=== PATIENT | female | born 1965 | race Caucasian/White ===

== ENCOUNTER 2018-09-15 12:42 | Outpatient (CLI) | payer OTHER ==
--- NOTE | 2018-09-15 14:38 | RAD ---
DOUBLE CONTRAST BARIUM SWALLOW: INDICATION: Dysphagia, esophageal disorder, 53-year-old female. FINDINGS: [facility] [employer] imaging of the chest reveals no significant abnormality. Utilizing liquid barium, effervescent crystals, and a 13.5 mm barium tablet, real-t9ime fluoroscopic imaging was performed. There is appropriate esophageal motility without evidence of a constricting l esion or a persistent mass. The contrast-opacified gastric lumen is grossly unremarkable. 12.5 mm b arium tablet freely passes the esophagus and into the stomach. During real-time evaluation, there is no evidence of significant gastroesophageal reflux. There is no hiatal hernia. IMPRESSION: Unremarkable double-contrast barium swallow exam. POS: [facility]
== END 2018-09-15 12:43 | disposition home or self-care (01) ==
LOC: RAD 12:42
PROVIDERS: ATTEND Family Medicine
DX: R13.10 Dysphagia, unspecified (principal); K22.9 Disease of esophagus, unspecified
CPT/HCPCS: 74220

== ENCOUNTER 2019-01-02 10:35 | Outpatient (CLI) | payer OTHER ==
--- NOTE | 2019-01-04 08:50 | RAD ---
Modified barium swallow HISTORY: Dysphagia. Feeding difficulties. FINDINGS: Exam was performed by speech pathology with multiple consistencies. Video review is availab le and demonstrates good bolus formation and retropulsion. Deep penetration was demonstrated. With the thinner consistencies on several occasions. No bryson aspiration. No significant residua. A 12 mm barium tablet was swallowed without apparent difficulty. The esophagus below the level of the hypopharynx was not evaluated. Please see separate detailed repo rt from speech pathology. Fluoroscopy time 31 seconds.
== END 2019-01-02 10:36 | disposition home or self-care (01) ==
PROVIDERS: ATTEND Otolaryngology Plastic Surgery within the Head & Neck
DX: R13.13 Dysphagia, pharyngeal phase (principal)
CPT/HCPCS: 74230

== ENCOUNTER 2021-01-04 07:47 | Inpatient (IN) | payer OTHER, SELFPAY ==
[2021-01-04 09:58] VITALS: BMI 24.9
[2021-01-04] MEDS ORDERED: HYDROcodone/Acetaminophen 5/325 mg Tablet PO PRN (10:08)
[2021-01-04] MEDS ORDERED: Senokot S 8.6-50 MG TAB PO PRN (10:08)
[2021-01-04] MEDS ORDERED: HYDROmorphone 0.5 MG/0.5 ML SYRINGE SLOW IVP PRN (10:10)
[2021-01-04] MEDS ORDERED: Sodium Chloride 0.9% 1,000 ML IV SCH (10:15)
[2021-01-04] MEDS ORDERED: Morphine 4 MG/ML VIAL SLOW IVP PRN (10:16)
[2021-01-04] MEDS ORDERED: Non-Formulary Item 1 EACH (Dextroamphetamine/Amphetamine [Adderall Xr 30 Mg Capsule] 30 M PO PRN (10:18)
[2021-01-04] MEDS: metroNIDAZOLE 500 MG in Premix Bag 1 BAG IVPB SCH ×2 (10:48→18:37)
[2021-01-04] MEDS: Sodium Chloride 0.9% 1,000 ML IV SCH ×2 (10:52→18:37)
[2021-01-04] MEDS: Acetaminophen 325 MG TAB PO PRN (12:03)
[2021-01-04 13:20] LABS: #Eosinphils 0.1 thou/uL (0.0-0.7); #Lymphocytes 0.8 thou/uL (1.20-3.40); %Basophils 0.5 % (0.0-1.0); %Eosinophils 0.6 % (0.0-10.0); %Monocytes 10.4 % (0.0-10.0); %Neutrophils 80.6 % (42.0-75.0); Hemoglobin 14.3 g/dL (12.0-16.0); Mean Corpuscular HGB CONC 32.4 g/dL (32.0-36.0); Mean Corpuscular Hemoglobin 29.7 pg (27.0-31.0); Mean Corpuscular Volume 91.7 fL (78.0-98.0); Mean Platelet Volume 8.1 fL (7.4-10.4); Platelet Count 172 thou/uL (130-400); RBC Distribution Width 12.2 % (11.5-14.5); Red Blood Cell (RBC) Count 4.83 mill/uL (4.20-5.40); White Blood Cell (WBC) Count 9.9 thou/uL (4.8-10.8)
[2021-01-04 13:40] LABS: Lactic Acid 1.4 mmol/L (0.5-2.2)
[2021-01-04 13:44] LABS: ALT (SGPT) 17 U/L (8-55); AST (SGOT) 17 U/L (5-34); Albumin 2.9 g/dL (3.5-5.0); Alkaline Phosphatase 62 U/L (40-110); Anion Gap 15 mmol/L (10-20); BUN (Urea Nitrogen) 7 mg/dL (9.8-20.1); Bilirubin, Total 0.4 mg/dL (0.2-1.2); Calc. Creatinine Clearance 102 mL/min (70-130); Calcium 8.3 mg/dL (7.8-10.44); Carbon Dioxide 16 mmol/L (22-29); Chloride 108 mmol/L (98-107); Globulin 2.6 g/dL (2.4-3.5); Glucose 100 mg/dL (70-105); Lipase 5 U/L (8-78); Potassium 3.5 mmol/L (3.5-5.1); Protein, Total 5.5 g/dL (6.0-8.3); Sodium 135 mmol/L (136-145)
[2021-01-04] MEDS: Morphine 4 MG/ML VIAL SLOW IVP PRN ×3 (13:45→21:57)
[2021-01-04] MEDS: Ondansetron PF 4 MG/2 ML Vial IVP PRN (18:45)
[2021-01-04] MEDS: Letrozole 2.5 MG TAB PO SCH (20:25)
[2021-01-04] MEDS ORDERED: Famotidine/PF 20 mg/2ml Vial SLOW IVP SCH (21:00)
[2021-01-05] MEDS: Morphine 4 MG/ML VIAL SLOW IVP PRN ×5 (02:19→20:32)
[2021-01-05] MEDS: metroNIDAZOLE 500 MG in Premix Bag 1 BAG IVPB SCH ×2 (02:20→11:02)
[2021-01-05] MEDS: Sodium Chloride 0.9% 1,000 ML IV SCH (02:26)
[2021-01-05 05:38] LABS: #Eosinphils 0.1 thou/uL (0.0-0.7); #Lymphocytes 0.9 thou/uL (1.20-3.40); #Monocytes 1.2 thou/uL (0.11-0.59); #Neutrophils 7.6 thou/uL (1.40-6.50); %Basophils 0.2 % (0.0-1.0); %Eosinophils 0.8 % (0.0-10.0); %Lymphocytes 9.6 % (21.0-51.0); %Neutrophils 77.4 % (42.0-75.0); Hemoglobin 13.2 g/dL (12.0-16.0); Mean Corpuscular HGB CONC 32.4 g/dL (32.0-36.0); Mean Corpuscular Hemoglobin 29.4 pg (27.0-31.0); Mean Corpuscular Volume 90.7 fL (78.0-98.0); Platelet Count 221 thou/uL (130-400); RBC Distribution Width 12.1 % (11.5-14.5); White Blood Cell (WBC) Count 9.8 thou/uL (4.8-10.8)
[2021-01-05 06:00] LABS: Anion Gap 16 mmol/L (10-20); BUN (Urea Nitrogen) 7 mg/dL (9.8-20.1); Calc. Creatinine Clearance 103 mL/min (70-130); Carbon Dioxide 15 mmol/L (22-29); Chloride 108 mmol/L (98-107); Glucose 79 mg/dL (70-105); Potassium 3.7 mmol/L (3.5-5.1); Sodium 135 mmol/L (136-145)
[2021-01-05 08:22] LABS: Magnesium 1.6 mg/dL (1.6-2.6); Phosphorus 2.5 mg/dL (2.3-4.7)
[2021-01-05] MEDS: Venlafaxine HCl XR 75 MG CAP PO SCH (08:29)
[2021-01-05] MEDS: D5 1/2 NS w/20 mEq KCL 1,000 ML IV SCH ×2 (08:29→19:00)
[2021-01-05] MEDS ORDERED: Pantoprazole 40 MG VIAL IVP SCH (09:00)
[2021-01-05] MEDS ORDERED: Prevnar 13-Val Conj/PF 0.5 ML SYRINGE IM ONE (09:00)
[2021-01-05] MEDS ORDERED: Magnesium 2 GM/50 ML 2 GM in Premix Bag 1 BAG IVPB SCH (09:15)
[2021-01-05] MEDS ORDERED: Morphine 2 MG/ML VIAL SLOW IVP PRN (09:59)
[2021-01-05] MEDS ORDERED: Morphine 4 MG/ML VIAL SLOW IVP PRN ×3 (10:03→18:06)
[2021-01-05 13:37] LABS: Lactic Acid 1.2 mmol/L (0.5-2.2)
[2021-01-05 13:40] LABS: Anion Gap 16 mmol/L (10-20); BUN (Urea Nitrogen) 7 mg/dL (9.8-20.1); Calc. Creatinine Clearance 93 mL/min (70-130); Calcium 8.3 mg/dL (7.8-10.44); Carbon Dioxide 17 mmol/L (22-29); Chloride 106 mmol/L (98-107); Glucose 96 mg/dL (70-105); Potassium 3.7 mmol/L (3.5-5.1); Sodium 135 mmol/L (136-145)
[2021-01-05] MEDS: Ondansetron PF 4 MG/2 ML Vial IVP PRN (18:01)
[2021-01-05] MEDS: Pantoprazole 40 MG VIAL IVP SCH (20:16)
[2021-01-05] MEDS: Letrozole 2.5 MG TAB PO SCH (20:17)
[2021-01-06] MEDS: D5 1/2 NS w/20 mEq KCL 1,000 ML IV SCH ×4 (01:50→17:45)
[2021-01-06] MEDS: Morphine 4 MG/ML VIAL SLOW IVP PRN ×4 (04:50→22:28)
[2021-01-06 05:55] LABS: #Eosinphils 0.1 thou/uL (0.0-0.7); #Lymphocytes 1.1 thou/uL (1.20-3.40); #Monocytes 0.9 thou/uL (0.11-0.59); #Neutrophils 6.7 thou/uL (1.40-6.50); %Basophils 0.5 % (0.0-1.0); %Eosinophils 1.7 % (0.0-10.0); %Lymphocytes 12.2 % (21.0-51.0); %Monocytes 10.2 % (0.0-10.0); %Neutrophils 75.5 % (42.0-75.0); Mean Corpuscular HGB CONC 32.7 g/dL (32.0-36.0); Mean Corpuscular Hemoglobin 29.3 pg (27.0-31.0); Mean Corpuscular Volume 89.6 fL (78.0-98.0); Mean Platelet Volume 7.9 fL (7.4-10.4); Platelet Count 225 thou/uL (130-400); Red Blood Cell (RBC) Count 3.76 mill/uL (4.20-5.40); White Blood Cell (WBC) Count 8.8 thou/uL (4.8-10.8)
[2021-01-06 06:18] LABS: ALT (SGPT) 9 U/L (8-55); AST (SGOT) 12 U/L (5-34); Albumin 2.3 g/dL (3.5-5.0); Alkaline Phosphatase 48 U/L (40-110); Anion Gap 10 mmol/L (10-20); BUN (Urea Nitrogen) 4 mg/dL (9.8-20.1); Bilirubin, Total 0.3 mg/dL (0.2-1.2); Calc. Creatinine Clearance 108 mL/min (70-130); Calcium 7.6 mg/dL (7.8-10.44); Carbon Dioxide 20 mmol/L (22-29); Chloride 107 mmol/L (98-107); Globulin 2.1 g/dL (2.4-3.5); Glucose 140 mg/dL (70-105); Magnesium 1.7 mg/dL (1.6-2.6); Potassium 3.7 mmol/L (3.5-5.1); Protein, Total 4.4 g/dL (6.0-8.3); Sodium 133 mmol/L (136-145)
[2021-01-06 06:33] LABS: Phosphorus 1.2 mg/dL (2.3-4.7)
[2021-01-06] MEDS ORDERED: Electrolyte Replacement Protocol 1 EACH FS PRN (06:54)
[2021-01-06] MEDS ORDERED: Magnesium 2 GM/50 ML 2 GM in Premix Bag 1 BAG IVPB SCH (07:30)
[2021-01-06] MEDS ORDERED: Potassium Phosphate 15 MMOL in Sodium Chloride 0.9% 250 ML 250 ML IVPB SCH (08:00)
[2021-01-06] MEDS ORDERED: PHOS-NAK 1 PKT PACK PO SCH (08:00)
[2021-01-06] MEDS: Pantoprazole 40 MG VIAL IVP SCH ×2 (09:14→20:15)
[2021-01-06] MEDS: Venlafaxine HCl XR 75 MG CAP PO SCH (10:49)
[2021-01-06] MEDS: Ondansetron PF 4 MG/2 ML Vial IVP PRN (12:30)
[2021-01-06] MEDS: Letrozole 2.5 MG TAB PO SCH (20:14)
[2021-01-07 05:31] LABS: #Eosinphils 0.3 thou/uL (0.0-0.7); #Lymphocytes 1.5 thou/uL (1.20-3.40); #Monocytes 0.8 thou/uL (0.11-0.59); #Neutrophils 4.9 thou/uL (1.40-6.50); %Basophils 0.6 % (0.0-1.0); %Eosinophils 3.5 % (0.0-10.0); %Lymphocytes 19.8 % (21.0-51.0); %Monocytes 10.9 % (0.0-10.0); %Neutrophils 65.3 % (42.0-75.0); Hemoglobin 10.8 g/dL (12.0-16.0); Mean Corpuscular HGB CONC 32.1 g/dL (32.0-36.0); Mean Corpuscular Hemoglobin 28.9 pg (27.0-31.0); Mean Platelet Volume 7.7 fL (7.4-10.4); Platelet Count 230 thou/uL (130-400); RBC Distribution Width 12.2 % (11.5-14.5); Red Blood Cell (RBC) Count 3.75 mill/uL (4.20-5.40); White Blood Cell (WBC) Count 7.5 thou/uL (4.8-10.8)
[2021-01-07 06:12] LABS: ALT (SGPT) Less than 7 U/L (8-55); AST (SGOT) 16 U/L (5-34); Albumin 2.1 g/dL (3.5-5.0); Alkaline Phosphatase 77 U/L (40-110); BUN (Urea Nitrogen) Less than 4 mg/dL (9.8-20.1); Bilirubin, Total 0.3 mg/dL (0.2-1.2); Calc. Creatinine Clearance 105 mL/min (70-130); Calcium 7.7 mg/dL (7.8-10.44); Carbon Dioxide 17 mmol/L (22-29); Chloride 108 mmol/L (98-107); Globulin 2.3 g/dL (2.4-3.5); Glucose 104 mg/dL (70-105); Magnesium 1.8 mg/dL (1.6-2.6); Potassium 3.7 mmol/L (3.5-5.1); Protein, Total 4.4 g/dL (6.0-8.3); Sodium 135 mmol/L (136-145)
[2021-01-07 06:17] LABS: Phosphorus 2.2 mg/dL (2.3-4.7)
[2021-01-07] MEDS ORDERED: K-Phos Neutral 250 MG TAB PO SCH (08:15)
[2021-01-07] MEDS: Pantoprazole 40 MG VIAL IVP SCH ×2 (09:37→19:52)
[2021-01-07] MEDS: Venlafaxine HCl XR 75 MG CAP PO SCH (09:38)
[2021-01-07] MEDS: K-Phos Neutral 250 MG TAB PO SCH ×3 (09:39→17:21)
[2021-01-07] MEDS: D5 1/2 NS w/20 mEq KCL 1,000 ML IV SCH ×2 (09:40→09:41)
[2021-01-07] MEDS: Morphine 4 MG/ML VIAL SLOW IVP PRN ×2 (11:13→21:36)
[2021-01-07] MEDS: Ondansetron PF 4 MG/2 ML Vial IVP PRN ×2 (12:26→19:50)
[2021-01-07 13:57] LABS: Anion Gap 14 mmol/L (10-20)
[2021-01-07] MEDS: Letrozole 2.5 MG TAB PO SCH (19:56)
[2021-01-07] MEDS: Loperamide HCl 2 MG CAP PO PRN (20:43)
[2021-01-08] MEDS: D5 1/2 NS w/20 mEq KCL 1,000 ML IV SCH (04:13)
[2021-01-08] MEDS: Saccharomyces boulardii 250 MG CAP PO SCH (07:51)
[2021-01-08] MEDS: K-Phos Neutral 250 MG TAB PO SCH ×2 (07:51→11:37)
[2021-01-08] MEDS: Venlafaxine HCl XR 75 MG CAP PO SCH (07:52)
[2021-01-08] MEDS: Pantoprazole 40 MG VIAL IVP SCH ×2 (07:52→21:01)
[2021-01-08] MEDS: Loperamide HCl 2 MG CAP PO PRN ×2 (13:37→21:29)
[2021-01-08] MEDS: Acetaminophen 325 MG TAB PO PRN ×2 (17:22→21:29)
[2021-01-08] MEDS: Letrozole 2.5 MG TAB PO SCH (21:03)
[2021-01-09 05:37] LABS: Anion Gap 10 mmol/L (10-20); BUN (Urea Nitrogen) Less than 4 mg/dL (9.8-20.1); Calc. Creatinine Clearance 102 mL/min (70-130); Calcium 8.4 mg/dL (7.8-10.44); Carbon Dioxide 26 mmol/L (22-29); Chloride 108 mmol/L (98-107); Glucose 96 mg/dL (70-105); Magnesium 1.7 mg/dL (1.6-2.6); Phosphorus 3.7 mg/dL (2.3-4.7); Potassium 3.4 mmol/L (3.5-5.1); Sodium 141 mmol/L (136-145)
[2021-01-09 05:50] LABS: Band 8 % (5-11); Eosinophils 6 % (0-10); Hemoglobin 12.5 g/dL (12.0-16.0); Lymphocytes 20 % (21-51); MDiff Complete? YES; Mean Corpuscular HGB CONC 33.8 g/dL (32.0-36.0); Mean Corpuscular Hemoglobin 30.7 pg (27.0-31.0); Mean Corpuscular Volume 90.6 fL (78.0-98.0); Mean Platelet Volume 7.3 fL (7.4-10.4); Monocytes 12 % (0-10); Neutrophil 54 % (42-75); Platelet Count 258 thou/uL (130-400); Platelet Morphology Comment Appears Adequate; RBC Distribution Width 12.3 % (11.5-14.5); RBC Morphology Normal; Red Blood Cell (RBC) Count 4.07 mill/uL (4.20-5.40); White Blood Cell (WBC) Count 4.5 thou/uL (4.8-10.8)
[2021-01-09] MEDS ORDERED: Potassium Chloride 10 MEQ TAB PO SCH ×2 (08:15→17:00)
[2021-01-09] MEDS ORDERED: Magnesium 2 GM/50 ML 2 GM in Premix Bag 1 BAG IVPB SCH (08:30)
[2021-01-09] MEDS: Pantoprazole 40 MG VIAL IVP SCH (09:04)
[2021-01-09] MEDS: Saccharomyces boulardii 250 MG CAP PO SCH (09:30)
[2021-01-09] MEDS: Venlafaxine HCl XR 75 MG CAP PO SCH (09:30)
[2021-01-09] MEDS: Loperamide HCl 2 MG CAP PO PRN (14:33)
[2021-01-09 16:07] VITALS: BP 109/53; TEMP 97.9
[2021-01-09] MEDS ORDERED: Magnesium Chloride 64 MG TAB PO SCH (21:00)
== END 2021-01-09 15:45 | disposition home or self-care (01) | DRG 872 ==
LOC: SURG A 08:28
PROVIDERS: ADMIT Internal Medicine; ATTEND Internal Medicine
DX: A41.59 Other Gram-negative sepsis (principal); A04.5 Campylobacter enteritis; D62 Acute posthemorrhagic anemia; E87.1 Hypo-osmolality and hyponatremia; E87.2 Acidosis; Z20.822 Contact with and (suspected) exposure to COVID-19; R65.20 Severe sepsis without septic shock; N94.89 Other specified conditions associated with female genital organs and menstrual cycle; E87.6 Hypokalemia; E83.42 Hypomagnesemia; E83.39 Other disorders of phosphorus metabolism; R79.89 Other specified abnormal findings of blood chemistry; K21.9 Gastro-esophageal reflux disease without esophagitis; F41.9 Anxiety disorder, unspecified; F32.9 Major depressive disorder, single episode, unspecified; F98.8 Other specified behavioral and emotional disorders with onset usually occurring in childhood and adolescence; Z85.3 Personal history of malignant neoplasm of breast; Z88.6 Allergy status to analgesic agent; Z28.21 Immunization not carried out because of patient refusal; Z79.899 Other long term (current) drug therapy; Z92.21 Personal history of antineoplastic chemotherapy; Z90.10 Acquired absence of unspecified breast and nipple; Z79.811 Long term (current) use of aromatase inhibitors
CPT/HCPCS: 36415; 80048; 80053; 83605; 83630; 83690; 83735; 84100; 85025; 85652; 86140; 87045; 87046; 87324; 87427; 87449; C9113; J1956; J2270; J2405; J3475; J3480; J7050